=== PATIENT | female | born 1970 | race African-American/Black ===

== ENCOUNTER 2022-06-21 15:19 | Emergency (ER) | payer BC ==
[~2022-06-21] VITALS: Ht 165.1 cm; Wt 129.3 kg
[2022-06-21 15:37] VITALS: BP 160/110
[2022-06-21] MEDS ORDERED: IBUPROFEN 600 MG TABLET ONE (16:40)
[2022-06-21] MEDS ORDERED: IBUPROFEN 600 MG TABLET PO ONE (17:00)
[2022-06-21] MEDS ORDERED: NAPR-1192 PO (18:52)
== END 2022-06-21 19:18 | disposition home or self-care (01) ==
LOC: ER 15:24
DX: M25.552 Pain in left hip (principal); M79.644 Pain in right finger(s); Z88.0 Allergy status to penicillin; Z88.8 Allergy status to other drugs, medicaments and biological substances
CPT/HCPCS: 73140-TC; 73502; 82962-TC